=== PATIENT | male | born 1970 | race Caucasian/White ===

== ENCOUNTER 2018-10-26 02:26 | Emergency (ER) | payer OTHER ==
[~2018-10-26] VITALS: Ht 188 cm; Wt 90.7 kg
[~2018-10-26 02:26] MED LIST: CIPRO750 MG PO; CLONAZEPAM1 MG PO; DOCUSATE SODIU100 MG PO; METHYLPRED4 MG/DOSE- PO; NEURONTIN PO; PERCOCET 5/3251 TAB PO
== END 2018-10-26 08:15 ==
LOC: ER 02:26
DX: R42 Dizziness and giddiness (principal); T40.7X1A Poisoning by cannabis (derivatives), accidental (unintentional), initial encounter; Y92.89 Other specified places as the place of occurrence of the external cause

== ENCOUNTER → 2019-02-07 | Outpatient (CLI) | payer OTHER | END | disposition home or self-care (01) | LOC: LAB SALUS 07:15 | DX: Z13.220 Encounter for screening for lipoid disorders (principal); Z13.1 Encounter for screening for diabetes mellitus; Z11.4 Encounter for screening for human immunodeficiency virus [HIV]; Z72.51 High risk heterosexual behavior; Z11.3 Encounter for screening for infections with a predominantly sexual mode of transmission; Z12.11 Encounter for screening for malignant neoplasm of colon ==